=== PATIENT | female | born 1995 | race African-American/Black ===

== ENCOUNTER 2024-04-12 16:01 | Emergency (ER) | payer OTHER ==
[~2024-04-12] VITALS: Ht 175.3 cm; Wt 88.3 kg
[2024-04-12] MEDS: ACETAMINOPHEN 325 MG TAB PO ONE (17:29)
[2024-04-12 18:29] VITALS: BP 141/86; TEMP 97.7; O2SAT 100
== END 2024-04-12 18:42 | disposition home or self-care (01) ==
LOC: M ED 16:01
DX: S40.012A Contusion of left shoulder, initial encounter (principal); Y92.410 Unspecified street and highway as the place of occurrence of the external cause; Y93.9 Activity, unspecified; Y99.9 Unspecified external cause status; V49.40XA Driver injured in collision with unspecified motor vehicles in traffic accident, initial encounter